=== PATIENT | male | born 1945 | race Caucasian/White ===

== ENCOUNTER 2024-03-17 11:54 | Outpatient (OUT) | payer OTHER, SELFPAY ==
--- NOTE | 2024-03-17 12:30 | CA_ITS ---
Patient Name: ARMOND POPE MR#: [id number] : 1945 Exam Date: 03/17/2024 Ordering Doctor: DR. MIRELLA LANE ECHOCARDIOGRAM REPORT PROCEDURE: CA ECHO DOPPLER COMPLETE INDICATIONS: Ischemic heart disease, CABGx4, cardiac stent COMPARISON: None. DESCRIPTION: COMPLETE ECHOCARDIOGRAM Real-time transthoracic echocardiography with 2D, M-mode, spectral and color flow Doppler performed. QUALITY: Technical quality was good. LEFT VENTRICLE: Normal chamber size. Mild concentric left ventricular hypertrophy. LV EF: Normal left ventricular ejection fraction 60%. No regional wall motion abnormalities DIASTOLIC: Normal left ventricular diastolic function. ATRIAL SEPTUM: Visually appears intact. LEFT ATRIUM: Mild dilatation. RIGHT ATRIUM: Mild dilatation. RIGHT VENTRICLE: Normal right ventricle size. Decreased right ventricular systolic function. TRICUSPID VALVE: Normal mobility and thickness. No stenosis with trace regurgitation. No evidence of pulmonary hypertension.RVSP 32 mmHg MITRAL VALVE: Normal mobility and thickness. No evidence of mitral valve stenosis. There is no mitral annular calcification. Mild mitral regurgitation. AORTIC VALVE: Normal trileaflet appearance. No visible sclerosis. Normal leaflet mobility. No evidence of aortic valve stenosis. Mild aortic regurgitation. AORTIC ROOT: Normal diameter and appearance. Ascending aorta is normal in size. PULMONIC VALVE: Normal thickness and mobility. No stenosis. No regurgitation. PERICARDIUM: No evidence of pericardial effusion. IVC: Collapes with inspirations. IVC is normal in size. PLEURA: CONCLUSION: Mild concentric left ventricle hypertrophy with normal left ventricle size Normal left ventricular function without wall motion abnormalities, ejection fraction 60% Normal left ventricular diastolic function Normal right ventricle size but systolic function appears to be reduced No evidence of pulmonary hypertension Mild aortic insufficiency Trace mitral regurgitation Trace tricuspid regurgitation Biatrial enlargement Adult Echocardiography Procedure Report Left Ventricle LVEDD (3.7 - 5.6 cm): 4.24 cm LVESD (2.2 - 4.0 cm): 2.86 cm LVIVS thickness (0.6 - 1.2 cm): 1.24 cm LVPW thickness (0.5 - 1.0 cm): 1.09 cm e': 0.11 m/s E - e': 7.33 LVOT Max Gradient: 2.62 mm[Hg] LVOT Area (cm2): 0.81 m/s Peak Velocity (LVOT): 0.81 m/s Mean Velocity (LVOT): 0.48 m/s LVOT Diameter 2.17 cm Left Atrium LA Volume Index (2D A2C): 41.86 ml/m2 Left Atrium Systolic Dimension: 4.03 cm Mitral Valve MV E to A Ratio: 1.15 Mitral Valve A-Wave Peak Velocity: 0.69 m/s Mitral Valve E-Wave Peak Velocity: 0.79 m/s Right Ventricle Aorta AO Root Diam: 3.12 cm Ascending Ao Diam: 2.73 cm Aortic Valve AoV Area (Peak Danie): 2.57 cm2, 2.57 cm2 AoV Area (VTI): 2.67 cm2, 2.67 cm2 Peak Velocity(Antegrade Flow): 1.17 m/s Peak Gradient(Antegrade Flow): 5.48 mm[Hg] Mean Velocity(Antegrade Flow): 0.76 m/s Mean Gradient(Antegrade Flow): 2.66 mm[Hg] Velocity Time Integral: 28.96 cm Tricuspid Valve Peak Velocity (Regurgitant Flow): 2.71 m/s Pulmonic Valve Mean Gradient: 2.93 mm[Hg] Mean Velocity: 0.81 m/s Peak Velocity: 1.25 m/s, 1.14 m/s Peak Gradient: 5.21 mm[Hg], 6.25 mm[Hg] Right Atrium Right Atrium Systolic Pressure: 65.10 ml, 65.10 ml Dictated by: Kaveh Marino MD on 03/17/2024 at 16:45 Approved by: Kaveh Marino MD on 03/17/2024 at 16:50
[2024-03-17 14:44] LABS: Free T4 0.94 ng/dL (0.76-1.46)
[2024-03-17 14:52] LABS: Free T3 1.98 pg/mL (2.18-3.98); Thyroid Stimulating Hormone 4.265 uIU/mL (0.358-3.740)
== END 2024-03-17 11:55 | disposition home or self-care (01) ==
PROVIDERS: PCP Family Medicine; Visit Provider Chiropractor
DX: I25.9 Chronic ischemic heart disease, unspecified (principal); E03.9 Hypothyroidism, unspecified
CPT/HCPCS: 36415; 84439; 84443; 84481; 93306